=== PATIENT | male | born 1975 | race Caucasian/White ===

== ENCOUNTER 2016-08-14 10:31 | Emergency (ER) | payer OTHER ==
[~2016-08-14] VITALS: Ht 177.8 cm; Wt 125.0 kg
[~2016-08-14 10:31] MED LIST: EFFEXOR XR75 MG PO; LATUDA20 MG PO; LYRICA150 MG PO; PROAIR RESPICL90 MCG IH; PROPRANOLOL HCL10 MG PO; TRAZODONE HCL50 MG PO; ZITHROMAX Z-PA250 MG PO
[2016-08-14] MEDS ORDERED: DESYREL100 MG PO (11:19)
[2016-08-14] MEDS ORDERED: LISINOPRIL10 MG PO (11:20)
[2016-08-14] MEDS ORDERED: LATUDA20 MG PO (11:20)
[2016-08-14 12:59] VITALS: BP 128/90
[2016-08-14] MEDS ORDERED: PERCOCET 5/31 TABLET PO (13:08)
== END 2016-08-14 13:26 | disposition home or self-care (01) ==
LOC: EME 10:31
PROC: 2W3LX1Z Immobilization of Right Lower Extremity using Splint (ICD-10-PCS; principal; 2016-08-14)
DX: S93.601A Unspecified sprain of right foot, initial encounter (principal); X50.9XXA Other and unspecified overexertion or strenuous movements or postures, initial encounter; W10.1XXA Fall (on)(from) sidewalk curb, initial encounter; Y92.480 Sidewalk as the place of occurrence of the external cause; J30.81 Allergic rhinitis due to animal (cat) (dog) hair and dander; Z88.0 Allergy status to penicillin; Z91.018 Allergy to other foods; J30.2 Other seasonal allergic rhinitis
CPT/HCPCS: 73630; 99281; 99284

== ENCOUNTER 2016-09-14 08:29 | Emergency (ER) | payer OTHER ==
[~2016-09-14] VITALS: Ht 177.8 cm; Wt 127.3 kg
[~2016-09-14 08:29] MED LIST changes: +DESYREL100 MG PO; +LISINOPRIL10 MG PO; +PERCOCET 5/31 TABLET PO
[2016-09-14 08:37] VITALS: BP 106/78
[2016-09-14] MEDS ORDERED: BACTRIM,SEPT1 TABLET PO (09:16)
== END 2016-09-14 09:35 | disposition home or self-care (01) ==
LOC: EME 08:29
PROC: 0HDFXZZ Extraction of Right Hand Skin, External Approach (ICD-10-PCS; principal; 2016-09-14)
DX: S61.011D Laceration without foreign body of right thumb without damage to nail, subsequent encounter (principal); W45.8XXD Other foreign body or object entering through skin, subsequent encounter; Y99.0 Civilian activity done for income or pay; I10 Essential (primary) hypertension; Z87.891 Personal history of nicotine dependence
CPT/HCPCS: 99281; 99284; S0020

== ENCOUNTER 2017-01-09 08:49 | Emergency (ER) | payer OTHER ==
[~2017-01-09] VITALS: Ht 177.8 cm; Wt 131.0 kg
[~2017-01-09 08:49] MED LIST changes: +BACTRIM,SEPT1 TABLET PO
[2017-01-09] MEDS ORDERED: FLEXERIL10 MG PO (10:15)
[2017-01-09] MEDS ORDERED: ULTRAM50 MG PO (10:15)
[2017-01-09] MEDS ORDERED: NAPROSYN500 MG PO (10:15)
[2017-01-09 10:37] VITALS: BP 143/96
== END 2017-01-09 10:40 | disposition home or self-care (01) ==
LOC: EME 08:49
DX: S30.1XXA Contusion of abdominal wall, initial encounter (principal); S70.02XA Contusion of left hip, initial encounter; W18.2XXA Fall in (into) shower or empty bathtub, initial encounter; Y93.E1 Activity, personal bathing and showering; Y92.002 Bathroom of unspecified non-institutional (private) residence as the place of occurrence of the external cause; I10 Essential (primary) hypertension; F17.200 Nicotine dependence, unspecified, uncomplicated
CPT/HCPCS: 99281; 99283; J3010

== ENCOUNTER 2017-03-19 09:05 | Emergency (ER) | payer OTHER ==
[~2017-03-19] VITALS: Ht 177.8 cm; Wt 128.6 kg
[~2017-03-19 09:05] MED LIST changes: +FLEXERIL10 MG PO; +NAPROSYN500 MG PO; +ULTRAM50 MG PO
[2017-03-19] MEDS ORDERED: VALIUM5 MG PO (10:24)
[2017-03-19] MEDS ORDERED: PERCOCET 5/31 TABLET PO (10:26)
[2017-03-19 11:26] VITALS: BP 133/101
== END 2017-03-19 11:26 | disposition home or self-care (01) ==
LOC: EME 09:05
DX: S46.812A Strain of other muscles, fascia and tendons at shoulder and upper arm level, left arm, initial encounter (principal); W01.0XXA Fall on same level from slipping, tripping and stumbling without subsequent striking against object, initial encounter; Y93.01 Activity, walking, marching and hiking; I10 Essential (primary) hypertension; M79.7 Fibromyalgia; F31.9 Bipolar disorder, unspecified; F41.9 Anxiety disorder, unspecified; F17.200 Nicotine dependence, unspecified, uncomplicated; Z88.0 Allergy status to penicillin
CPT/HCPCS: 99281; 99283

== ENCOUNTER 2017-04-27 08:13 | Emergency (ER) | payer OTHER ==
[~2017-04-27] VITALS: Ht 177.8 cm; Wt 131.8 kg
[~2017-04-27 08:13] MED LIST changes: +VALIUM5 MG PO
[2017-04-27] MEDS ORDERED: FLEXERIL10 MG PO (12:19)
[2017-04-27] MEDS ORDERED: PERCOCET 5/31 TABLET PO (12:19)
[2017-04-27 12:31] VITALS: BP 138/90
== END 2017-04-27 12:32 | disposition home or self-care (01) ==
LOC: EME 08:13
DX: S39.012A Strain of muscle, fascia and tendon of lower back, initial encounter (principal); X50.9XXA Other and unspecified overexertion or strenuous movements or postures, initial encounter; F17.200 Nicotine dependence, unspecified, uncomplicated
CPT/HCPCS: 72100; 99281; 99284; J1885; J2270

== ENCOUNTER 2017-08-03 09:15 | Emergency (ER) | payer OTHER ==
[~2017-08-03] VITALS: Ht 177.8 cm; Wt 134.7 kg
[2017-08-03] MEDS ORDERED: MEDROL DOSEPAK4 MG PO (11:51)
[2017-08-03 12:33] VITALS: BP 144/100
== END 2017-08-03 12:34 | disposition home or self-care (01) ==
LOC: EME 09:15
DX: S20.211A Contusion of right front wall of thorax, initial encounter (principal); S30.0XXA Contusion of lower back and pelvis, initial encounter; S70.01XA Contusion of right hip, initial encounter; S80.01XA Contusion of right knee, initial encounter; S90.01XA Contusion of right ankle, initial encounter; S90.31XA Contusion of right foot, initial encounter; M54.16 Radiculopathy, lumbar region; M25.511 Pain in right shoulder; W10.9XXA Fall (on) (from) unspecified stairs and steps, initial encounter; Q66.89 Other specified congenital deformities of feet; G89.29 Other chronic pain; E66.9 Obesity, unspecified; I10 Essential (primary) hypertension; M79.7 Fibromyalgia; F31.9 Bipolar disorder, unspecified; F41.0 Panic disorder [episodic paroxysmal anxiety]; Z88.0 Allergy status to penicillin
CPT/HCPCS: 71045; 71046; 73030; 73502; 73564; 73610; 73630; 99281; 99285; J1885